=== PATIENT | female | born 2000 | race Caucasian/White ===

== ENCOUNTER 2024-03-22 12:16 | Outpatient (REF) | payer MEDICAID, SELFPAY ==
--- NOTE | ~2024-03-22 | US_ITS ---
EXAMINATION: US THYROID CLINICAL INFORMATION: Mass in the left-sided maxillary region. COMPARISON: None available. TECHNIQUE: Linear transducer marina-scale and color Doppler examination with attention to area of palpable lump FINDINGS: Targeted sonographic evaluation of the area of lump in the left side of the neck revealed well marginated hypoechoic solid mass, measured 2.9 x 2.3 x 1.8 cm in. The mass is hypervascular. There is echogenic center. Findings are most suggestive for pathologically enlarged lymph node. US/US soft tiss head and/or neck IMPRESSION: Solid mass most likely lymph node in the area of interest, left side of the neck. Electronically signed by: Nereida Valadez MD 03/23/2024 08:36 AM [facility]
== END 2024-03-22 12:17 | disposition home or self-care (01) ==
LOC: HO.UMASIMG 12:16
PROVIDERS: Visit Provider Nurse Practitioner
DX: R22.1 Localized swelling, mass and lump, neck (principal)
CPT/HCPCS: 76536